=== PATIENT | male | born 1975 | race African-American/Black ===

== ENCOUNTER 2018-07-16 13:31 | Emergency (ER) | payer MEDICAID ==
[~2018-07-16] VITALS: Ht 175.3 cm; Wt 79.4 kg
[2018-07-16 13:38] VITALS: BP 121/74; Ht 175.3 cm; Wt 79.4 kg
== END 2018-07-16 15:53 | disposition home or self-care (01) ==
LOC: ED 13:31
DX: H10.9 Unspecified conjunctivitis (principal); J45.909 Unspecified asthma, uncomplicated; Z88.0 Allergy status to penicillin

== ENCOUNTER 2019-02-18 23:17 | Emergency (ER) | payer OTHER ==
[~2019-02-18] VITALS: Ht 175.3 cm; Wt 81.2 kg
[2019-02-18 23:22] VITALS: Ht 175.3 cm; Wt 81.2 kg
[2019-02-19 02:34] LABS: UA SPECIFIC GRAVITY <=1.005 (1.005-1.035); microscopic required? YES; urine erythrocyte 3+ (NEGATIVE)
[2019-02-19 03:09] VITALS: BP 129/89
== END 2019-02-19 03:09 | disposition home or self-care (01) ==
LOC: ED 23:17
PROVIDERS: Emergency Medicine
DX: M54.5 Low back pain (principal); R31.9 Hematuria, unspecified; R10.9 Unspecified abdominal pain; F17.210 Nicotine dependence, cigarettes, uncomplicated; J45.909 Unspecified asthma, uncomplicated; Z71.6 Tobacco abuse counseling; Z88.0 Allergy status to penicillin
CPT/HCPCS: 99406